=== PATIENT | male | born 1995 | race Caucasian/White ===

== ENCOUNTER → 2025-05-16 | Outpatient (CLI) | payer OTHER, SELFPAY ==
[2025-05-16 17:44] LABS: Hematocrit 44.2 % (40-54); Hemoglobin 14.8 g/dL (13.0-16.5); Immature Granulocytes Count 0.020 X10^3/uL (0.0-0.0); Mean Corp Hgb Conc 33.5 g/dL (32-36); Mean Corpuscular Volume 83.6 fL (80-94); Mean Platelet Vol. 10.3 fl (6.2-12.0); NRBC Flagged by Analyzer 0 % (0-5); Platelet Count 259 K/mm3 (150-450); RBC Distribution Width CV 12.6 % (11.6-14.6); RBC Distribution Width SD 38.3 fl (35.1-43.9); Red Blood Count 5.29 M/mm3 (4.6-6.2); White Blood Count 8.3 K/mm3 (4.4-11.0)
[2025-05-16 18:44] LABS: AST(SGOT) 32 U/L (<=37); Alanine Aminotransfer ALT/SGPT 46 U/L (<=46); Albumin, Serum 4.5 g/dL (3.5-5.0); Alkaline Phosphatase 71 U/L (40-129); Anion Gap 13 (5-15); BUN 13 mg/dL (4-19); BUN/Creat Ratio 13.5 RATIO (10-20); Calcium,Total 9.6 mg/dL (7.6-11.0); Carbon Dioxide 25.1 mmol/L (21.0-32.0); Chloride 102 mmol/L (98-108); Cholesterol 189 mg/dL (<=200); Globulin 3.0 g/dL (2.2-4.2); Glucose 88 mg/dL (70-99); Low Density Lipoprotein Calc. 129 mg/dL; Potassium 4.1 mmol/L (3.3-5.1); Triglycerides 85 mg/dL; Very Low Density Lipoprotein 17 mg/dL (5-40); cholesterol:hdl ratio screen 4.34
[2025-05-16 19:14] LABS: Vitamin D,25 Hydroxy 26.1 ng/mL (30-100)
== END | disposition home or self-care (01) ==
LOC: MFPLAB 14:04
PROVIDERS: PCP Family Medicine; Referring Provider Family Medicine; Visit Provider Family Medicine
DX: Z00.00 Encounter for general adult medical examination without abnormal findings (principal); I10 Essential (primary) hypertension; R53.83 Other fatigue
CPT/HCPCS: 36415; 80053; 80061; 82306; 84443; 85025

== ENCOUNTER 2025-07-12 12:58 | Emergency (ER) | payer OTHER, SELFPAY ==
[2025-07-12 12:59] VITALS: BP 137/94; PULSE 87; RESP 16; TEMP 36.6; O2SAT 100; BMI 37.3
--- NOTE | 2025-07-12 13:24 | RAD_ITS ---
PROCEDURE: LUMBAR SPINE 2 OR 3 VIEWS 07/12/2025 REASON FOR EXAM: PAIN TECHNIQUE: Procedure Code: RADSPLL Modality: DX Procedure: LUMBAR SPINE 2 OR 3 VIEWS COMPARISON: None. FINDINGS: Vertebrae: No acute bony abnormalities. Discs: Unremarkable disc levels. Alignment: Normal alignment. Right-sided curvature of the spine which can be positional. RAD/Lumbar Spine 2 or 3 Views IMPRESSION: No acute osseous abnormalities. Reading Location: [id number]
--- NOTE | 2025-07-12 13:29 | ED.VIS.BACK ---
HPI History of Present Illness Chief Complaint: Back Narrative Narrative: 30-year-old male past medical history of hypertension presents with back pain that has had since Monday, approximately 1 week ago. He denies any recent trauma or falls. He does relate history that he had problems with a bulging disc in the past. He came home from work and his back started feeling tight. Throughout the week, he has gotten much worse. Yesterday evening, he had so much pain that he was having difficulty sleeping. Is taking ibuprofen and Tylenol without relief. He denies any fevers or chills, no nausea or vomiting. It may radiate to his left thigh. His back feels tight and it is worse when he tries to transfer or bend. He denies any saddle anesthesia, no loss of bowel or bladder. [facility] Medical History Hypertension Home Medications ?Medication ?Instructions ?Recorded ?Last Taken ?Type ergocalciferol (vitamin D2) 1,250 1,250 mcg PO QWEEK 07/12/25 Unknown History mcg (50,000 unit) capsule hydrocodone-acetaminophen 5-325mg 1 tab PO Q6H PRN PRN Pain 3 days 07/12/25 Unknown Rx 5mg-325mg #10 TABLETS lisinopril 5 mg tablet 5 mg PO DAILY 07/12/25 Unknown History orphenadrine citrate 100 mg 100 mg PO BID #14 tabs 07/12/25 Unknown Rx tablet,extended release Allergy/AdvReac Type Severity Reaction Status Date / Time erythromycin base AdvReac mood swings Verified 07/12/25 13:00 Social History Smoking Status: Unknown if ever smoked ROS ROS ED ROS Narrative Review of systems positive for low back pain and tightness mainly on the left side to midline. Slight radiation to the left anterior thigh. No fevers or chills, no saddle anesthesia, no loss of bowel or bladder. Worse with bending and transfer. History of bulging disc and low back. EXAM Physical Exam Narrative Exam Narrative: Afebrile. Vital signs noted. Nontoxic-appearing. Cardiovascular examination reveals a regular rate and rhythm. Lungs are clear to auscultation bilaterally. The abdomen is soft and nontender without guarding or rebound. Positive bowel sounds. Neurological examination is nonfocal, nonlateralizing. Inspection of the lumbar spine area shows no evidence of erythema or crepitance. Mild tenderness to palpation in sacroiliac area but no vertebral point tenderness or bony step-off noted. He appears neurovascularly intact distally with palpable dorsalis pedis pulse left. Straight leg raising is negative in a seated position in chair. Const Vital Signs: 07/12/25 12:59 Temperature 98 F Temperature Source Oral Pulse Rate 87 Respiratory Rate 16 Blood Pressure 137/94 H Blood Pressure Mean 108 Pulse Ox 100 Oxygen Delivery Method Room Air MDM MDM MDM Narrative Medical decision making narrative: Differential diagnosis includes but not limited to lumbar radiculopathy versus musculoskeletal sprain versus strain of ligaments. Clinically there are no red flag signs for cauda equina syndrome. I do not feel that he needs a stat MRI of his back. Patient is agreeable to intramuscular injections though he was given ketorolac, Norflex, and 4 mg of morphine for analgesia. X-rays will be obtained of the lumbar spine to look for degenerative disc disease versus fracture. X-rays of the lumbar spine interpreted by myself independently shows mild scoliosis, but no acute fracture. I reviewed the radiology report which confirms my independent interpretation and comments about no acute osseous abnormalities. Upon repeat examination, he is sitting in a chair. He states he feels essentially unchanged. However, I do feel he can be discharged to follow-up with his primary care provider and/or orthopedic spine. He was written a prescription for Norflex for the next week as well as 10 tablets of Boyd for breakthrough pain. He will take [id number] Advil as needed. Return instructions to the emergency department were reviewed. Disposition is discharged home in stable condition. History & Record Review Discussion w/independent historian: Patient Additional record(s) reviewed:: No prior records (No prior ED visits) Radiography Diagnostic Testing: Clinical Impression(s) from Imaging Studies Lumbar Spine X-Ray 07/12/25 13:24 IMPRESSION: No acute osseous abnormalities. Reading Location: [facility] Discharge Plan Triage Chief Complaint: Back ED Provider: Viatliy May Dx/Rx/DC Orders Clinical Impression: Left lumbar radiculopathy, Lumbosacral strain Instructions: ED Back Pain (Acute or Chronic), ED Sciatica Prescriptions: New orphenadrine citrate 100 mg tablet extended release 100 mg PO BID Qty: 14 0RF hydrocodone-acetaminophen 5-325 mg tablet 1 tab PO Q6H PRN PRN (Reason: Pain) 3 Days Qty: 10 0RF No Action lisinopril 5 mg tablet 5 mg PO DAILY ergocalciferol (vitamin D2) 1,250 mcg (50,000 unit) capsule 1,250 mcg PO QWEEK Primary Care Provider: Anabel Rodriguez Referrals: Jerson Moore MD [Med Staff - Active Staff, Orthopedics] - As soon as possible Anabel Rodriguez MD [Primary Care Provider, Family Practice] - 3-5 Days Activity Restrictions/Additional Instructions: Continue ibuprofen as directed. You can take up to 800 mg orally 3 times a day for up to 1 week. Be wary of ulcers with its use and be sure to take with food. Use Boyd as needed for breakthrough pain. Be aware of nausea, vomiting, drowsiness, constipation, and addiction with use of narcotic pain medication. Beware of drowsiness with use of muscle relaxers. Print Language: [place] Disposition Disposition: Home, Self Care
[2025-07-12] MEDS: Orphenadrine 60 MG/2 ML Ampul IM (13:31)
[2025-07-12] MEDS: Ketorolac 30 MG/ML Syringe IM (13:31)
[2025-07-12 14:47] VITALS: BP 132/66; PULSE 78; RESP 14; TEMP 36.6; O2SAT 100
== END 2025-07-12 14:48 | disposition home or self-care (01) ==
PROVIDERS: Emergency Provider Emergency Medicine; PCP Family Medicine; Visit Provider Emergency Medicine
DX: S39.012A Strain of muscle, fascia and tendon of lower back, initial encounter (principal); X58.XXXA Exposure to other specified factors, initial encounter; M54.16 Radiculopathy, lumbar region; I10 Essential (primary) hypertension; Z79.899 Other long term (current) drug therapy
CPT/HCPCS: 72100; 96372; 99282